=== PATIENT | male | born 1995 | race Two or more races ===

== ENCOUNTER 2023-08-03 15:58 | Inpatient (IN) | payer MEDICAID, OTHER ==
[~2023-08-03] VITALS: Ht 160 cm; Wt 59.4 kg
[2023-08-03 17:10] LABS: ANION GAP 11 mmol/L (8-16); BASOPHILS % (AUTO) 0.2 % (0.0-2.0); CALCIUM, TOTAL 8.9 mg/dL (8.8-10.5); CARBON DIOXIDE 26 mmol/L (22-29); CHLORIDE 103 mmol/L (98-107); CREATININE 0.83 mg/dL (0.60-1.30); EOSINOPHILS % (AUTO) 0.1 % (1.0-6.0); GLOMERULAR FILTR. RATE CALC > 60 mL/min (>60); GLUCOSE,RANDOM 129 mg/dL (70-110); HEMATOCRIT 44.8 % (41-53); HEMOGLOBIN 14.9 g/dL (13.5-17.5); LYMPHOCYTES # (AUTO) 2.2 K/uL (1.0-4.8); LYMPHOCYTES % (AUTO) 17.8 % (22.0-44.0); MEAN CORPUSCULAR HGB CONC 33.3 G/dL (31.0-37.0); MEAN CORPUSCULAR VOLUME 96 fL (80-100); MONOCYTES # (AUTO) 0.9 K/uL (0.1-1.0); MONOCYTES % (AUTO) 6.8 % (2.0-9.0); NEUTROPHILS # (AUTO) 9.5 K/uL (1.8-7.7); NEUTROPHILS % (AUTO) 75.1 % (40.0-70.0); PLATELET COUNT (AUTO) 222 K/uL (150-450); POTASSIUM 3.6 mmol/L (3.5-5.1); RED BLOOD CELL COUNT(AUTO) 4.65 MIL/uL (4.50-5.90); RED CELL DISTRIBUTION WIDTH 12.6 % (11.5-14.5); SODIUM SERUM 140 mmol/L (136-145); UREA NITROGEN, BLOOD 14 mg/dL (7-18); WHITE BLOOD COUNT (AUTO) 12.7 K/uL (4.5-11.0)
[2023-08-03 17:16] LABS: ALANINE AMINOTRANSFERASE 41 U/L (12-78); ALBUMIN 4.3 g/dL (3.4-5.0); ALKALINE PHOSPHATASE 72 U/L (46-116); ASPARTATE AMINOTRANSFERASE 21 U/L (15-37); BILIRUBIN,TOTAL 0.6 mg/dL (0.1-1.0); TOTAL PROTEIN, SERUM 7.7 g/dL (6.4-8.2)
[2023-08-03 17:24] LABS: ALCOHOL, BLOOD (SERUM) < 3 mg/dL (0-10)
[2023-08-03] MEDS ORDERED: ZOLPIDEM TARTRATE 10 MG TABLET PO PRN (21:00)
[2023-08-03] MEDS ORDERED: LORazepam 2 MG TABLET PO PRN (21:00)
[2023-08-03] MEDS ORDERED: HALOPERIDOL 5 MG TABLET PO PRN (21:00)
[2023-08-03] MEDS: HALOPERIDOL LACTATE 5 MG/ML VIAL IM ONE (22:13)
[2023-08-03] MEDS: LORazepam 2 MG/ML VIAL IM ONE (22:13)
[2023-08-03] MEDS: DiphenhydrAMINE HCL 50 MG/ML VIAL IM ONE (22:13)
[2023-08-04] MEDS ORDERED: ZOLPIDEM TARTRATE 10 MG TABLET PO PRN (00:15)
[2023-08-04] MEDS ORDERED: HALOPERIDOL 5 MG TABLET PO PRN (00:15)
[2023-08-04 01:24] LABS: COVID AG,FIA SOURCE NASAL SWAB
[2023-08-04 01:45] LABS: SARS-COV2 (COVID) ANTIGEN,FIA Negative (Negative)
[2023-08-04 11:15] VITALS: BP 129/84; PULSE 104; RESP 18; TEMP 98.5; O2SAT 96
[2023-08-04] MEDS ORDERED: MAGNESIUM HYDROXIDE SUSPENSION 30 ML UDCUP PO PRN (22:30)
[2023-08-04] MEDS ORDERED: ALBUTEROL SULFATE HFA 90 MCG/PUFF 8 GM INHALER IH PRN (22:30)
[2023-08-04] MEDS ORDERED: BACITRACIN 28 GM OINTMENT TP PRN (22:30)
[2023-08-04] MEDS ORDERED: MAG HYDROX/ALUMINUM HYD/SIMETH ES 30 ML SUSPENSION UDCUP PO PRN (22:30)
[2023-08-04] MEDS ORDERED: CloNIDine HCL 0.1 MG TABLET PO PRN (22:30)
[2023-08-04] MEDS ORDERED: IBUPROFEN 600 MG TABLET PO PRN (22:30)
[2023-08-04] MEDS ORDERED: PETROLATUM,WHITE 28 GM JELLY TP PRN (22:30)
[2023-08-04] MEDS ORDERED: OMEPRAZOLE 20 MG CAPSULE PO PRN (22:30)
[2023-08-04] MEDS ORDERED: ACETAMINOPHEN 325 MG TABLET PO PRN (22:30)
[2023-08-04] MEDS ORDERED: LOPERAMIDE HCL 2 MG CAPSULE PO PRN (22:30)
[2023-08-04] MEDS ORDERED: BENZOCAINE/MENTHOL LOZENGE PO PRN (22:30)
[2023-08-04] MEDS ORDERED: ONDANSETRON HCL 4 MG TABLET PO PRN (22:30)
[2023-08-04] MEDS ORDERED: DOCUSATE SODIUM 100 MG CAPSULE PO PRN (22:30)
[2023-08-05 09:07] VITALS: BP 133/81; PULSE 96; RESP 18; TEMP 97.8; O2SAT 99
[2023-08-05] MEDS: RisperiDONE 2 MG TABLET PO SCH (10:15)
[2023-08-06 01:01] VITALS: RESP 18
[2023-08-06 10:49] VITALS: BP 126/89; PULSE 107; RESP 19; TEMP 97.3; O2SAT 96
[2023-08-06] MEDS: LORazepam 2 MG TABLET PO PRN (18:01)
[2023-08-06] MEDS: RisperiDONE 3 MG TABLET PO SCH (20:43)
[2023-08-06 22:44] VITALS: RESP 16
[2023-08-07 08:14] VITALS: BP 112/73; PULSE 102; RESP 18; TEMP 98; O2SAT 98
[2023-08-07 20:20] VITALS: BP 103/75; PULSE 67; TEMP 97.8; O2SAT 100
[2023-08-08 09:14] VITALS: BP 114/61; PULSE 111; RESP 16; TEMP 98.4; O2SAT 99
[2023-08-08 09:16] VITALS: BP 114/61; PULSE 111; RESP 16; TEMP 98.4; O2SAT 99
[2023-08-08 20:29] VITALS: BP 110/71; PULSE 89; RESP 18; TEMP 98.7
[2023-08-09 08:29] VITALS: BP 120/83; PULSE 106; RESP 17; TEMP 98.6; O2SAT 99
[2023-08-09] MEDS ORDERED: RISP3TAB35 PO (16:01)
== END 2023-08-09 17:25 | disposition home or self-care (01) | DRG 750 ==
LOC: EMS 16:08 → B3A 08-04 08:31
PROVIDERS: ADMIT Psychiatry & Neurology Psychiatry; ATTEND Psychiatry & Neurology Psychiatry
PROC: GZHZZZZ Group Psychotherapy (ICD-10-PCS; principal; 2023-08-05)
PROC: GZ51ZZZ Individual Psychotherapy, Behavioral (ICD-10-PCS; 2023-08-09)
PROC: GZ56ZZZ Individual Psychotherapy, Supportive (ICD-10-PCS; 2023-08-09)
DX: F20.0 Paranoid schizophrenia (principal); R45.851 Suicidal ideations; F17.210 Nicotine dependence, cigarettes, uncomplicated; F94.0 Selective mutism; G47.00 Insomnia, unspecified; F41.9 Anxiety disorder, unspecified; Z20.822 Contact with and (suspected) exposure to COVID-19; K59.00 Constipation, unspecified; Z91.199 Patient's noncompliance with other medical treatment and regimen due to unspecified reason; F32.A Depression, unspecified; Z79.899 Other long term (current) drug therapy
CPT/HCPCS: 80053; 85025; 99285; G0480; J1200; J1630; J2060